=== PATIENT | female | born 1970 | race African-American/Black ===

== ENCOUNTER 2016-05-24 19:15 | Emergency (ER) | payer OTHER | END 2016-05-24 19:55 | disposition left against medical advice (07) | LOC: ER1 19:15 | DX: Z53.21 Procedure and treatment not carried out due to patient leaving prior to being seen by health care provider (principal) ==

== ENCOUNTER → 2016-06-01 | Outpatient (CLI) | payer OTHER | LOC: LAB 14:44 → OPSV 14:44 | DX: A51.39 Other secondary syphilis of skin (principal); I10 Essential (primary) hypertension | CPT/HCPCS: 36415; 86780; 96372; J0561 ==

== ENCOUNTER → 2016-06-13 | Outpatient (CLI) | payer OTHER | LOC: OPSV 14:43 | DX: A53.9 Syphilis, unspecified (principal) | CPT/HCPCS: 96372; J0561 ==

== ENCOUNTER → 2016-06-19 | Outpatient (CLI) | payer OTHER ==
[~2016-06-19] VITALS: Ht 165.1 cm; Wt 54.0 kg
== END ==
LOC: OPSV 14:10
DX: A53.9 Syphilis, unspecified (principal)
CPT/HCPCS: 96372; J0558

== ENCOUNTER 2016-07-12 12:20 | Emergency (ER) | payer OTHER ==
[2016-07-12 14:38] LABS: HEMOGLOBIN 13.4 gm/dl (12.3-15.3); RED BLOOD COUNT 4.74 M/UL (4.00-5.10); WHITE BLOOD COUNT 4.8 K/UL (4.5-11.0)
[2016-07-12 15:29] LABS: BUN/CREATININE RATIO 18 (0-10)
== END 2016-07-12 18:50 | disposition home or self-care (01) ==
LOC: ER1 12:20
PROVIDERS: Emergency Medicine
DX: R51 Headache (principal); R11.2 Nausea with vomiting, unspecified; I10 Essential (primary) hypertension; J45.909 Unspecified asthma, uncomplicated
CPT/HCPCS: 36415; 70450; 80048; 85025; 96374; 96375; 99284; J2270; J2405; J7030

== ENCOUNTER 2016-08-23 08:25 | Emergency (ER) | payer OTHER ==
[2016-08-23 09:29] LABS: HEMOGLOBIN 12.9 gm/dl (12.3-15.3); RED BLOOD COUNT 4.57 M/UL (4.00-5.10); WHITE BLOOD COUNT 4.6 K/UL (4.5-11.0)
[2016-08-23 09:47] LABS: BUN/CREATININE RATIO 19 (0-10)
== END 2016-08-23 15:40 | disposition home or self-care (01) ==
LOC: ER1 08:25
PROVIDERS: Emergency Medicine
DX: R10.9 Unspecified abdominal pain (principal); E78.5 Hyperlipidemia, unspecified; I10 Essential (primary) hypertension; G43.909 Migraine, unspecified, not intractable, without status migrainosus
CPT/HCPCS: 36415; 80053; 81001; 83690; 85025; 87040; 87086; 96374; 96375; 96376; 99285; J2270; J2405; J7030; J7050; Q9962

== ENCOUNTER 2020-05-17 01:37 | Emergency (ER) | payer OTHER ==
[~2020-05-17 01:37] MED LIST: ASPIRIN EC81 MG PO; ATORVASTATIN CA40 MG PO; DOK100 MG PO; IMDUR ER TAB 3030 MG PO; IPRAT-ALBUT 0.5-3 ML INH; LINZESS290 MCG PO; LIPITOR TAB 1010 MG PO; LISINOPRIL10 MG PO; LOPRESSOR 25 MG25 MG PO; PREDNISONE 50 M50 MG PO; PROCTOZONE-HC30 GM PR; PROVENTIL HFA6.7 GM INH; SINGULAIR10 MG PO; ZESTRIL/PRINIVI10 MG PO; ZITHROMAX250 MG PO
== END 2020-05-17 02:55 | disposition home or self-care (01) ==
LOC: ER1 01:37
DX: G56.92 Unspecified mononeuropathy of left upper limb (principal)
CPT/HCPCS: 99283

== ENCOUNTER → 2020-09-07 | Outpatient (CLI) | payer OTHER ==
[~2020-09-07] MED LIST changes: +INDOCIN CAP 2525 MG PO; +PREDNISONE 20 M20 MG GT
== END ==
LOC: HEART 5 10:39
DX: J45.909 Unspecified asthma, uncomplicated (principal)
CPT/HCPCS: 94010

== ENCOUNTER 2020-10-09 19:12 | Emergency (ER) | payer OTHER ==
[~2020-10-09 19:12] MED LIST changes: -INDOCIN CAP 2525 MG PO; -PREDNISONE 20 M20 MG GT
[2020-10-10] MEDS ORDERED: INDOCIN CAP 2525 MG PO (02:17)
[2020-10-10] MEDS ORDERED: PREDNISONE 20 M20 MG GT (02:17)
== END 2020-10-10 01:00 | disposition home or self-care (01) ==
LOC: ER1 19:12
DX: M10.9 Gout, unspecified (principal); I10 Essential (primary) hypertension; J44.9 Chronic obstructive pulmonary disease, unspecified; E78.5 Hyperlipidemia, unspecified
CPT/HCPCS: 73630; 99283

== ENCOUNTER 2020-11-26 14:31 | Emergency (ER) | payer OTHER ==
[~2020-11-26 14:31] MED LIST changes: +INDOCIN CAP 2525 MG PO; +PREDNISONE 20 M20 MG GT
[2020-11-26 15:27] LABS: HEMOGLOBIN 13.3 gm/dl (12.3-15.3); RED BLOOD COUNT 4.91 M/UL (4.00-5.10); WHITE BLOOD COUNT 5.7 K/UL (4.5-11.0)
[2020-11-26 15:58] LABS: BUN/CREATININE RATIO 14 (0-10)
[2020-11-26] MEDS ORDERED: HYDROCODON-ACE1 EAC4 PO (17:17)
== END 2020-11-26 17:36 | disposition home or self-care (01) ==
LOC: ER1 14:31
PROVIDERS: Emergency Medicine
DX: S09.90XA Unspecified injury of head, initial encounter (principal); S13.4XXA Sprain of ligaments of cervical spine, initial encounter; S20.214A Contusion of middle front wall of thorax, initial encounter; S30.1XXA Contusion of abdominal wall, initial encounter; J44.9 Chronic obstructive pulmonary disease, unspecified; V49.40XA Driver injured in collision with unspecified motor vehicles in traffic accident, initial encounter
CPT/HCPCS: 70450; 71045; 71260; 72125; 80053; 81001; 82550; 82553; 83874; 84484; 85025; 93005; 96374; 96375; 99285; J2270; J2405; Q9967

== ENCOUNTER 2021-07-16 04:05 | Emergency (ER) | payer OTHER ==
[~2021-07-16 04:05] MED LIST changes: +HYDROCODON-ACE1 EAC4 PO
[2021-07-16] MEDS ORDERED: CYCLOBENZAPRINE10 MG PO (06:11)
== END 2021-07-16 06:24 | disposition home or self-care (01) ==
LOC: ER1 04:05
DX: S40.012A Contusion of left shoulder, initial encounter (principal); S70.02XA Contusion of left hip, initial encounter; I10 Essential (primary) hypertension; J44.9 Chronic obstructive pulmonary disease, unspecified; V43.52XA Car driver injured in collision with other type car in traffic accident, initial encounter; Y92.410 Unspecified street and highway as the place of occurrence of the external cause
CPT/HCPCS: 71045; 73030; 73502; 93005; 99284